=== PATIENT | male | born 1995 | race Caucasian/White ===

== ENCOUNTER 2018-02-17 18:24 | Emergency (ER) | payer OTHER ==
[~2018-02-17] VITALS: Ht 177.8 cm; Wt 102.1 kg
--- NOTE | 2018-02-17 18:24 | NUR ---
PT KAT BLS TO ER BED 07
[2018-02-17 18:29] VITALS: BP 138/86
--- NOTE | 2018-02-17 18:42 | NUR ---
PATIENT IS A 23 YO MALE [facility]URN FROM SOAP ON SATURDAY TO DORSAL TOP OF FOOT SOME REDNESS AND BLISTERS NO OPEN WOUND OR DRAINAGE.
--- NOTE | 2018-02-17 19:21 | NUR ---
Dr. Rico evaluating patient at bedside.
--- NOTE | 2018-02-17 19:30 | NUR ---
TYPE OF SOAP THAT CAUSE INJURY IS ECOLAB BRAND SOLID POWER XL SOAP. EDMD MADE AWARE.
--- NOTE | 2018-02-17 20:10 | NUR ---
Patient discharged with v/s stable. Written and verbal after care instructions given and explained. Patient alert, oriented and verbalized understanding of instructions. Ambulatory with steady gait. All questions addressed prior to discharge. ID band removed. Patient advised to follow up with PMD. Rx of SILVADENE CREAM, KEFLEX, AND BACTRIM given. Patient educated on indication of medication including possible reaction and side effects. Opportunity to ask questions provided and answered.
[2018-02-17 20:11] VITALS: BP 125/78
--- NOTE | 2018-02-17 20:11 | NUR ---
[employer] FORM SIGNED BY KAZ DAY
== END 2018-02-17 20:10 | disposition home or self-care (01) ==
LOC: MED 18:24
DX: T25.621D Corrosion of second degree of right foot, subsequent encounter (principal); Y92.89 Other specified places as the place of occurrence of the external cause; Z88.8 Allergy status to other drugs, medicaments and biological substances; Z88.1 Allergy status to other antibiotic agents
CPT/HCPCS: 99283